=== PATIENT | female | born 1960 | race Caucasian/White ===

== ENCOUNTER 2018-05-21 19:23 | Emergency (ER) | payer OTHER ==
[~2018-05-21] VITALS: Ht 160 cm; Wt 90.7 kg
[~2018-05-21 19:23] MED LIST: AMITRIPTYLINE H10 MG; ARTHROTEC 501 TAB.EC; ATACAND16 MG; FOLIC ACID1 MG; HUMIRA40 MG/0.1; METHOTREXATE; NORFLEX100 MG; PREMPRO 0.45/1.1 TAB; RANITIDINE HCL150 M1; ZYRTEC10 MG
== END 2018-05-22 03:29 | disposition home or self-care (01) ==
LOC: ER 19:23
DX: K52.9 Noninfective gastroenteritis and colitis, unspecified (principal); E86.0 Dehydration; I10 Essential (primary) hypertension

== ENCOUNTER 2023-05-14 11:30 | Emergency (ER) | payer OTHER ==
[~2023-05-14] VITALS: Ht 157.5 cm; Wt 87.1 kg
== END 2023-05-14 13:41 | disposition home or self-care (01) ==
LOC: ER → EDBD 12:48 → ER 12:48
DX: S82.65XA Nondisplaced fracture of lateral malleolus of left fibula, initial encounter for closed fracture (principal); W10.9XXA Fall (on) (from) unspecified stairs and steps, initial encounter; Y93.9 Activity, unspecified; Y92.9 Unspecified place or not applicable; Y99.9 Unspecified external cause status

== ENCOUNTER 2023-05-20 10:08 | Outpatient (CLI) | payer OTHER | END 2023-05-20 10:18 | disposition home or self-care (01) | LOC: RAD 10:08 | PROVIDERS: ATTEND Orthopaedic Surgery | DX: S82.65XA Nondisplaced fracture of lateral malleolus of left fibula, initial encounter for closed fracture (principal) ==

== ENCOUNTER 2023-05-27 10:01 | Outpatient (CLI) | payer OTHER | END 2023-05-27 10:07 | disposition home or self-care (01) | LOC: RAD 10:01 | PROVIDERS: ATTEND Orthopaedic Surgery | DX: S82.65XD Nondisplaced fracture of lateral malleolus of left fibula, subsequent encounter for closed fracture with routine healing (principal) ==